=== PATIENT | female | born 1965 | race African-American/Black ===

== ENCOUNTER 2016-07-29 13:58 | Emergency (ER) | payer OTHER, MEDICARE ==
[~2016-07-29 13:58] MED LIST: AMIT10 PO; ANADS PO; CLARIT10 PO; DENIES HOME MEDS; FLAGYL PO; FORTAMET500 MG PO; LISINOPRIL40 MG PO; ZOCOR20 PO
== END 2016-07-29 16:06 | disposition home or self-care (01) ==
LOC: ER 13:58
DX: S29.012A Strain of muscle and tendon of back wall of thorax, initial encounter (principal); Z91.018 Allergy to other foods; Z79.899 Other long term (current) drug therapy; V29.20XA Unspecified motorcycle rider injured in collision with unspecified motor vehicles in nontraffic accident, initial encounter
CPT/HCPCS: 71020; 72040; 72100; 99284